=== PATIENT | female | born 1990 | race Two or more races ===

== ENCOUNTER 2024-06-11 13:37 | Emergency (ER) | payer OTHER ==
[~2024-06-11] VITALS: Ht 160 cm; Wt 81.8 kg
[2024-06-11 13:41] VITALS: BP 130/79; PULSE 114; RESP 18; TEMP 98; O2SAT 99
== END 2024-06-11 18:06 | disposition home or self-care (01) ==
LOC: EMS 13:37
DX: S40.012A Contusion of left shoulder, initial encounter (principal); S40.011A Contusion of right shoulder, initial encounter; S20.213A Contusion of bilateral front wall of thorax, initial encounter; S40.022A Contusion of left upper arm, initial encounter; S40.021A Contusion of right upper arm, initial encounter; S80.12XA Contusion of left lower leg, initial encounter; S80.11XA Contusion of right lower leg, initial encounter; F41.9 Anxiety disorder, unspecified; F17.210 Nicotine dependence, cigarettes, uncomplicated; Y04.0XXA Assault by unarmed brawl or fight, initial encounter; Y93.89 Activity, other specified; Y92.89 Other specified places as the place of occurrence of the external cause; Y99.0 Civilian activity done for income or pay
CPT/HCPCS: 99282; Z7502